=== PATIENT | female | born 1990 | race African-American/Black ===

== ENCOUNTER 2020-07-03 01:06 | Inpatient (IN) ==
[~2020-07-03 01:06] MED LIST: BUTORPHANOL 1 MG/ML VIAL IV PRN; LACTATED RINGERS 500 ML IV PRN; MEPERIDINE 50 MG/1 ML VIAL IV PRN; ONDANSETRON 4 MG/2 ML VIAL IV PRN
[2020-07-03 01:37] LABS: Basophils % 0.3 % (0.0-0.8); Eosinophils # 0.3 10*3/uL (0.0-0.87); Eosinophils % 2.4 % (0.00-10.9); Hematocrit 38.3 VOL% (35.7-47.0); Hemoglobin 12.5 GM/DL (12.0-16.0); Immature Granulocytes % 1.6 %; Immature Granulocytes Absolute 0.17 #; Lymphocytes # 1.8 10*3/uL (1.4-4.0); Mean Corpuscular HGB Conc 32.6 GM/DL (32-36); Mean Corpuscular Volume 101.1 FL (87-102); Mean Platelet Volume 12.2 FL (9.6-12.0); Monocytes % 9.1 % (1.7-12.7); Neutrophils % 69.6 % (38.7-73.9); Platelet Count 144 T/CUMM (130-400); Red Blood Count 3.79 MC/CUMM (3.8-5.5); White Blood Count 10.4 T/CUMM (4-12)
[2020-07-03 01:59] LABS: Albumin 3.1 G/DL (3.4-5.0); Bilirubin,Total 0.6 MG/DL (0.2-1.0); Calcium 9.1 MG/DL (8.5-10.1); Osmolality,Calculated 269.8 MOS/KG (273-304); Potassium 3.9 MMOL/L (3.5-5.1); Total Protein 7.3 G/DL (6.4-8.2)
[2020-07-03] MEDS: LACTATED RINGERS 1,000 ML IV SCH ×3 (02:00→09:58)
[2020-07-03] MEDS ORDERED: OXYTOCIN/LR 20 UNIT/1,000 ML BAG IV SCH (06:00)
[2020-07-03] MEDS ORDERED: hydrOXYzine HCL 25 MG/1 ML VIAL IM PRN (08:10)
[2020-07-03] MEDS ORDERED: NALOXONE 0.4 MG/ML VIAL IV PRN (08:10)
[2020-07-03] MEDS ORDERED: diphenhydrAMINE 50 MG/1 ML VIAL IV PRN ×2 (08:10)
[2020-07-03] MEDS ORDERED: CITRIC ACID/SODIUM CITRATE 30 ML UDCUP PO ONE (08:10)
[2020-07-03] MEDS ORDERED: PROMETHAZINE 25 MG/1 ML VIAL IM ONE (08:10)
[2020-07-03] MEDS ORDERED: ePHEDrine 50 MG/ML VIAL IV PRN (08:10)
[2020-07-03] MEDS ORDERED: LACTATED RINGERS 1,000 ML IV ONE (08:10)
[2020-07-03] MEDS ORDERED: FAMOTIDINE 20 MG/2 ML VIAL IV ONE (08:10)
[2020-07-03] MEDS ORDERED: fentaNYL 2 MCG/ROPIV 0.2% EPID 100 ML EPIDURAL SCH (08:30)
[2020-07-03 10:14] LABS: Bilirubin,Urine Negative (Negative); Blood, Urine Negative (Negative); Glucose,Urine (UA) Negative (Negative); Ketones,Urine Negative (Negative); Mucus,Urine Occasional /LPF (Occasional); Nitrite,Urine Negative (Negative); Protein,Urine Negative; Squamous Epithelial Cell,Urine Occasional /HPF (0-10); Urine Appearance CLEAR (Clear); Urine Color Yellow (Yellow); Urine Specific Gravity 1.008 (1.001-1.035); Urine Urobilinogen < 2.0 EU/DL (0.2-1.0)
[2020-07-03] MEDS ORDERED: miSOPROStoL 200 MCG TABLET ONE (12:17)
[2020-07-03] MEDS ORDERED: OXYTOCIN/LR 20 UNIT/1,000 ML BAG IV ONE ×2 (12:18→15:45)
[2020-07-03] MEDS ORDERED: TRANEXAMIC ACID 1,000 MG/10 ML VIAL ONE (12:18)
[2020-07-03] MEDS ORDERED: CARBOPROST TROMETHAMINE 250 MCG/ML AMP IM ONE (12:18)
[2020-07-03] MEDS ORDERED: METHYLERGONOVINE 0.2 MG/1 ML AMP ONE (12:18)
[2020-07-03 13:32] LABS: Cord Venous Blood HCO3 24.8 MMOL/L; Cord Venous Blood PCO2 52.1 MMHG; Cord Venous Blood PO2 23.9 MMHG
[2020-07-03] MEDS ORDERED: ACETAMINOPHEN 325 MG TABLET PO PRN (15:45)
[2020-07-03] MEDS ORDERED: BENZOCAINE 20%/MENTHOL 0.5% SPRAY 56 GM CAN TOP PRN (15:45)
[2020-07-03] MEDS ORDERED: HYDROCORTISONE 2.5% RECTAL CREAM 30 GM TUBE TOP PRN (15:45)
[2020-07-03] MEDS ORDERED: DIPH/TET/ACEL PERT BOOSTER VACCINE 0.5 ML VIAL IM ONE (15:45)
[2020-07-03] MEDS ORDERED: WITCH HAZEL PADS 100/JAR TOP PRN (15:45)
[2020-07-03] MEDS ORDERED: oxyCODONE/ACETAMINOPHEN 5-325 MG TABLET PO PRN (15:45)
[2020-07-03] MEDS ORDERED: LANOLIN 50% CREAM 0.3 OZ TUBE TOP PRN (15:45)
[2020-07-03] MEDS ORDERED: RHO(D) IMMUNE GLOBULIN 300 MCG SYRINGE IM ONE (15:45)
[2020-07-03] MEDS ORDERED: MEASLES/MUMPS/RUBELLA VACCINE 0.5 ML VIAL SUBCUT ONE (15:45)
[2020-07-03] MEDS ORDERED: BISACODYL 10 MG SUPP RECTAL PRN (15:45)
[2020-07-03] MEDS: oxyCODONE/ACETAMINOPHEN 5-325 MG TABLET PO PRN (18:15)
[2020-07-03] MEDS: DOCUSATE SODIUM 100 MG CAPSULE PO SCH (20:10)
[2020-07-04] MEDS: IBUPROFEN 800 MG TABLET PO PRN ×3 (00:11→19:43)
[2020-07-04 04:38] LABS: Basophils % 0.2 % (0.0-0.8); Eosinophils # 0.3 10*3/uL (0.0-0.87); Eosinophils % 2.1 % (0.00-10.9); Hematocrit 34.9 VOL% (35.7-47.0); Hemoglobin 11.8 GM/DL (12.0-16.0); Immature Granulocytes Absolute 0.12 #; Lymphocytes # 1.5 10*3/uL (1.4-4.0); Lymphocytes % 12.3 % (21.3-54.2); Mean Corpuscular HGB Conc 33.8 GM/DL (32-36); Mean Corpuscular Volume 98.3 FL (87-102); Mean Platelet Volume 12.4 FL (9.6-12.0); Monocytes % 8.1 % (1.7-12.7); Neutrophils % 76.3 % (38.7-73.9); Platelet Count 136 T/CUMM (130-400); Red Blood Count 3.55 MC/CUMM (3.8-5.5); Red Cell Distribution Width 13.9 % (9.3-17.3); White Blood Count 12.1 T/CUMM (4-12)
[2020-07-04] MEDS: DOCUSATE SODIUM 100 MG CAPSULE PO SCH ×3 (09:07→20:30)
[2020-07-04] MEDS: oxyCODONE/ACETAMINOPHEN 5-325 MG TABLET PO PRN ×2 (11:42→23:03)
[2020-07-04] MEDS ORDERED: MAGNESIUM HYDROXIDE SUSP 30 ML UDCUP PO PRN (18:06)
[2020-07-05] MEDS: IBUPROFEN 800 MG TABLET PO PRN (03:53)
[2020-07-05] MEDS: DOCUSATE SODIUM 100 MG CAPSULE PO SCH (10:07)
[2020-07-05] MEDS: oxyCODONE/ACETAMINOPHEN 5-325 MG TABLET PO PRN (11:20)
[2020-07-05 11:21] VITALS: BP 100/56
== END 2020-07-05 16:30 | disposition home or self-care (01) | DRG 560 ==
LOC: N.LD → N.OB 15:40
PROVIDERS: ADMIT Obstetrics & Gynecology; ATTEND Obstetrics & Gynecology

== ENCOUNTER 2022-05-14 03:59 | Inpatient (IN) ==
[2022-05-14] MEDS ORDERED: CARBOPROST TROMETHAMINE 250 MCG/ML AMP IM PRN (04:13)
[2022-05-14] MEDS ORDERED: ONDANSETRON 4 MG/2 ML VIAL IV PRN (04:13)
[2022-05-14] MEDS ORDERED: METHYLERGONOVINE 0.2 MG/1 ML AMP IM PRN (04:13)
[2022-05-14] MEDS ORDERED: MEPERIDINE 50 MG/1 ML VIAL IV PRN (04:13)
[2022-05-14] MEDS ORDERED: LACTATED RINGERS 500 ML IV PRN (04:13)
[2022-05-14] MEDS ORDERED: LACTATED RINGERS 250 ML IV ONE (04:13)
[2022-05-14] MEDS ORDERED: TRANEXAMIC ACID 1,000 MG in SODIUM CHLORIDE 0.9% 100 ML IV PRN (04:13)
[2022-05-14] MEDS ORDERED: BUTORPHANOL 2 MG/ML VIAL IV PRN (04:13)
[2022-05-14] MEDS ORDERED: miSOPROStoL 200 MCG TABLET RECTAL PRN (04:13)
[2022-05-14] MEDS ORDERED: OXYTOCIN/LR 20 UNIT/1,000 ML BAG IV ONE ×2 (04:13→15:00)
[2022-05-14] MEDS: LACTATED RINGERS 1,000 ML IV SCH ×2 (04:26→07:44)
[2022-05-14] MEDS ORDERED: FAMOTIDINE 20 MG/2 ML VIAL IV SCH (04:30)
[2022-05-14] MEDS ORDERED: CITRIC ACID/SODIUM CITRATE 30 ML UDCUP PO ONE (05:18)
[2022-05-14] MEDS ORDERED: NALOXONE 0.4 MG/ML VIAL IV PRN (05:18)
[2022-05-14] MEDS ORDERED: ONDANSETRON 4 MG/2 ML VIAL IV ONE (05:18)
[2022-05-14] MEDS ORDERED: diphenhydrAMINE 50 MG/1 ML VIAL IV PRN ×2 (05:18)
[2022-05-14] MEDS ORDERED: ePHEDrine 50 MG/ML VIAL IV PRN (05:18)
[2022-05-14] MEDS ORDERED: FAMOTIDINE 20 MG/2 ML VIAL IV ONE (05:18)
[2022-05-14] MEDS ORDERED: PROMETHAZINE 25 MG/1 ML VIAL IM ONE (05:18)
[2022-05-14] MEDS ORDERED: hydrOXYzine HCL 25 MG/1 ML VIAL IM PRN (05:18)
[2022-05-14 05:27] LABS: Basophils % 0.2 % (0.0-0.8); Eosinophils # 0.1 10*3/uL (0.0-0.87); Eosinophils % 1.6 % (0.00-10.9); Hematocrit 31.6 VOL% (35.7-47.0); Hemoglobin 10.3 GM/DL (12.0-16.0); Immature Granulocytes % 1.1 %; Lymphocytes # 1.5 10*3/uL (1.4-4.0); Lymphocytes % 17.3 % (21.3-54.2); Mean Corpuscular HGB Conc 32.6 GM/DL (32-36); Mean Corpuscular Volume 95.8 FL (87-102); Mean Platelet Volume 11.4 FL (9.6-12.0); Monocytes # 0.7 10*3/uL (0.11-0.8); Neutrophils % 71.8 % (38.7-73.9); Platelet Count 144 T/CUMM (130-400); Red Cell Distribution Width 14.5 % (9.3-17.3); White Blood Count 8.77 T/CUMM (4-12)
[2022-05-14] MEDS ORDERED: fentaNYL 2 MCG/ROPIV 0.2% EPID 100 ML EPIDURAL SCH (05:45)
[2022-05-14 05:49] LABS: Albumin 2.8 G/DL (3.4-5.0); Bilirubin,Total 0.5 MG/DL (0.20-1.00); Calcium 9.1 MG/DL (8.5-10.1); Osmolality,Calculated 272.7 MOS/KG (273-304); Potassium 3.6 MMOL/L (3.5-5.1); Total Protein 6.9 G/DL (6.4-8.2)
[2022-05-14 05:52] LABS: Band Neutrophils 1 % (0-10); Eosinophils 1 % (0-10); Lymphocytes 20 % (20-55); Total Cells Counted 100
[2022-05-14 05:53] LABS: Hypochromia 1+; Microcytosis 1+; Platelet Estimate Adequate; Polychromasia Slight
[2022-05-14] MEDS: OXYTOCIN/LR 20 UNIT/1,000 ML BAG IV SCH ×2 (07:53→13:45)
[2022-05-14 10:59] LABS: Cord Venous Blood HCO3 23.4 MMOL/L; Cord Venous Blood PCO2 43.1 MMHG; Cord Venous Blood PO2 33.9
[2022-05-14] MEDS ORDERED: IBUPROFEN 800 MG TABLET PO ONE (13:41)
[2022-05-14] MEDS ORDERED: HYDROCORTISONE 2.5% RECTAL CREAM 30 GM TUBE TOP PRN (15:00)
[2022-05-14] MEDS ORDERED: MEASLES/MUMPS/RUBELLA VACCINE 0.5 ML VIAL SUBCUT ONE (15:00)
[2022-05-14] MEDS ORDERED: oxyCODONE/ACETAMINOPHEN 5-325 MG TABLET PO PRN (15:00)
[2022-05-14] MEDS ORDERED: RHO(D) IMMUNE GLOBULIN 300 MCG SYRINGE IM ONE (15:00)
[2022-05-14] MEDS ORDERED: ACETAMINOPHEN 325 MG TABLET PO PRN (15:00)
[2022-05-14] MEDS ORDERED: BENZOCAINE 20%/MENTHOL 0.5% SPRAY 56 GM CAN TOP PRN (15:00)
[2022-05-14] MEDS ORDERED: BISACODYL 10 MG SUPP RECTAL PRN (15:00)
[2022-05-14] MEDS ORDERED: WITCH HAZEL PADS 100/JAR TOP PRN (15:00)
[2022-05-14] MEDS ORDERED: DIPH/TET/ACEL PERT BOOSTER VACCINE 0.5 ML VIAL IM ONE (15:00)
[2022-05-14] MEDS ORDERED: LANOLIN 50% CREAM 0.3 OZ TUBE TOP PRN (15:00)
[2022-05-14] MEDS: oxyCODONE/ACETAMINOPHEN 5-325 MG TABLET PO PRN (15:53)
[2022-05-14] MEDS: DOCUSATE SODIUM 100 MG CAPSULE PO SCH (22:22)
[2022-05-15 05:53] LABS: Basophils % 0.2 % (0.0-0.8); Eosinophils # 0.2 10*3/uL (0.0-0.87); Eosinophils % 1.8 % (0.00-10.9); Hematocrit 30.8 VOL% (35.7-47.0); Immature Granulocytes % 0.9 %; Immature Granulocytes Absolute 0.11 #; Lymphocytes # 1.3 10*3/uL (1.4-4.0); Lymphocytes % 10.6 % (21.3-54.2); Mean Corpuscular HGB Conc 32.5 GM/DL (32-36); Mean Corpuscular Volume 96.3 FL (87-102); Mean Platelet Volume 12.4 FL (9.6-12.0); Monocytes # 0.8 10*3/uL (0.11-0.8); Monocytes % 6.4 % (1.7-12.7); Neutrophils % 80.1 % (38.7-73.9); Platelet Count 156 T/CUMM (130-400); Red Cell Distribution Width 14.5 % (9.3-17.3); White Blood Count 12.13 T/CUMM (4-12)
[2022-05-15] MEDS: DOCUSATE SODIUM 100 MG CAPSULE PO SCH ×2 (08:58→20:55)
[2022-05-15] MEDS: IBUPROFEN 800 MG TABLET PO PRN (17:49)
[2022-05-16] MEDS: oxyCODONE/ACETAMINOPHEN 5-325 MG TABLET PO PRN (00:39)
[2022-05-16] MEDS: DOCUSATE SODIUM 100 MG CAPSULE PO SCH (09:00)
[2022-05-16] MEDS: IBUPROFEN 800 MG TABLET PO PRN (09:20)
[2022-05-16 13:47] VITALS: BP 118/59
== END 2022-05-16 12:20 | disposition home or self-care (01) | DRG 560 ==
LOC: N.LD 03:59 → N.OB 14:47
PROVIDERS: ADMIT Obstetrics & Gynecology; ATTEND Obstetrics & Gynecology